=== PATIENT | male | born 1955 | race Caucasian/White ===

== ENCOUNTER 2023-12-14 06:20 | Inpatient (IN) | payer MEDICARE ==
--- NOTE | 2023-12-14 07:00 | ED ---
Abdominal Pain HPI - General Chief Complaint: Abdominal Pain Stated Complaint: vomiting Time Seen by Provider: 12/14/23 06:58 Source: patient, family, RN notes reviewed Mode of arrival: wheelchair Limitations: no limitations - History of Present Illness Initial Comments: 68-year-old male presented to the ER with a chief complaint of epigastric abdominal pain. Patient reports this started after eating dinner last night. He started to experience nausea and frequent episodes of vomiting around 11 PM. He states he has had 5 episodes of vomiting undigested food and no bile she pain started. He describes as sharp in nature. Patient does report a history of colon cancer with colon resection when he was 48 at [facility]. Patient has taken [id number] Pepto-Bismol and Advil without relief. He states he had a normal bowel movement yesterday. Denies any urinary complaints, fevers, chills, chest pain, shortness of breath or peripheral edema. - Related Data Home Medications Medication Instructions Recorded Confirmed No Known Home Medications 12/14/23 12/14/23 Allergies Allergy/AdvReac Type Severity Reaction Status Date / Time No Known Allergies Allergy Verified 12/14/23 09:12 Review of Systems ROS Statement: Those systems with pertinent positive or pertinent negative responses have been documented in the HPI. ROS Other: All systems not noted in ROS Statement are negative. Past Medical History Past Medical History: Cancer Additional Past Medical History / Comment(s): Colon Cancer History of Any Multi-Drug Resistant Organisms: None Reported Past Psychological History: No Psychological Hx Reported Smoking Status: Never smoker Past Alcohol Use History: Occasional Past Drug Use History: None Reported General Exam Limitations: no limitations General appearance: alert, in no apparent distress Respiratory exam: Present: normal lung sounds bilaterally. Absent: respiratory distress, wheezes, rales, rhonchi, stridor Cardiovascular Exam: Present: regular rate, normal rhythm, normal heart sounds. Absent: systolic murmur, diastolic murmur, rubs, gallop, clicks GI/Abdominal exam: Present: soft, tenderness (generalized), normal bowel sounds Extremities exam: Present: normal inspection, full ROM, normal capillary refill. Absent: tenderness, pedal edema, joint swelling, calf tenderness Neurological exam: Present: alert, oriented X3, CN II-XII intact Skin exam: Present: warm, dry, intact, normal color. Absent: rash Course Vital Signs 12/14/23 12/14/23 12/14/23 06:22 06:39 07:37 Temperature 97.9 F 98.1 F Pulse Rate 63 66 67 Respiratory 18 20 17 Rate Blood Pressure 128/83 131/83 134/84 O2 Sat by Pulse 98 98 96 Oximetry 12/14/23 12/14/23 09:00 09:31 Temperature 98.1 F Pulse Rate 70 72 Respiratory 16 16 Rate Blood Pressure 144/91 130/85 O2 Sat by Pulse 94 L 95 Oximetry - Reevaluation(s) Reevaluation #1: 12/14/23 10:59 Discussed with on-call surgery, Dr. Navarrete who advised on admission to medicine and NG tube placement. Reevaluation #2: 12/14/23 11:00 Discussed with [facility], Dr. Gao for admission. Medical Decision Making - Medical Decision Making Was pt. sent in by a medical professional or institution (, PA, [employer] [facility], urgent care, hospital, or [place] health [place] facility...) When possible be specific @ -No Did you speak to anyone other than the patient for history (EMS, parent, family, police, friend...)? What history was obtained from this source @ -No Did you review nursing and triage notes (agree or disagree)? Why? @ -I reviewed and agree with nursing and triage notes Were old charts reviewed (outside hosp., previous admission, EMS record, old EKG, old radiological studies, urgent care reports/EKG's, [place] health care facility records)? Report findings @ -No old charts were reviewed Differential Diagnosis (chest pain, altered mental status, abdominal pain women, abdominal pain men, vaginal bleeding, weakness, fever, dyspnea, syncope, headache, dizziness, GI bleed, back pain, seizure, CVA, palpatations, mental health, musculoskeletal)? @ -Differential Abdominal Pain Women: Appendicitis, Cholecystitis, diverticulosis, ischemic bowel, pancreatitis, hepatitis, UTI, gastroenteritis, AAA, incarcerated hernia, bowel obstruction, constipation, inflammatory bowel, hepatitis, peptic ulcer disease, splenic infarction, perforated viscus, vulvitis, ovarian torsion, PID, kidney stone, placenta abruption, this is not meant to be an all-inclusive list EKG interpreted by me (3pts min.). @ -As above X-rays interpreted by me (1pt min.). @ -None done CT interpreted by me (1pt min.). @ -CT abdomen pelvis showing a partial small bowel obstruction with transition point in the anterior right lower quadrant. Rule out ileus. U/S interpreted by me (1pt. min.). @ -None done What testing was considered but not performed or refused? (CT, X-rays, U/S, labs)? Why? @ -None What meds were considered but not given or refused? Why? @ -None Did you discuss the management of the patient with other professionals (professionals i.e. DrRitika, PA, [employer], lab, RT, psych nurse, oncology social work, bicycle courier, teacher, aerospace engineer officer armament, ed case manager)? Give summary @ -Case discussed with on-call general surgery, Dr. Navarrete, who advised on admission to medicine and NG tube placement. Case also discussed with [facility], Dr. Gao for admission. Was smoking cessation discussed for >3mins.? @ -No Was critical care preformed (if so, how long)? @ -No Were there social determinants of health that impacted care today? How? (Homelessness, low income, unemployed, alcoholism, drug addiction, transportation, low edu. Level, literacy, decrease access to med. care, [facility], rehab)? @ -No Was there de-escalation of care discussed even if they declined (Discuss DNR or withdrawal of care, Hospice)? DNR status @ -No What co-morbidities impacted this encounter? (DM, HTN, Smoking, COPD, CAD, Ca ncer, CVA, ARF, Chemo, Hep., AIDS, mental health diagnosis, sleep apnea, morbid obesity)? @ -Hx colon cancer with resection about 20 years ago Was patient admitted / discharged? Hospital course, mention meds given and route, prescriptions, significant lab abnormalities, going to OR and other pertinent info. @ -Discharge. 68-year-old male presented to the ER with a chief complaint of a bdominal pain. History and physical exam completed. Vitals within normal limits. Patient in no signs of acute distress and nontoxic-appearing. Generalized abdominal pain with normal bowel sounds. No rebound or guarding. Laboratory studies show any leukocytosis 14.5 with a left shift. Lactic a cidosis 3.5. Patient is hyperglycemic at 198. Urinalysis showing mild signs of dehydration with 2+ protein and 2+ ketones. CT abdomen pelvis concerning of a partial small bowel obstruction. Case discussed with on-call general surgery, Dr. Navarrete who advises on admission to medicine with NG tube placement. Admission discussed with Dr. Gao, [facility], for further treatment and evaluation of SBO. Received 1 L IV fluids, Zofran, Toradol and Protonix in the ER. Blood cultures obtained. Patient started on Zosyn. NG-tube placed. Upon reevalutation patient resting in exam room in no signs of acute distress. Results discussed with patient, all questions answered. Patient agreeable for admission. Patient admitted in stable condition for further evaluation and treatment. Case discussed with ED attending, Dr. Jefferson. Undiagnosed new problem with uncertain prognosis? @ -Yes Drug Therapy requiring intensive monitoring for toxicity (Heparin, Nitro, Insulin, Cardizem)? @ -No Were any procedures done? @ -No Diagnosis/symptom? @ -Partial small bowel obstruction/ lactic acidosis/leukocytosis Acute, or Chronic, or Acute on Chronic? @ -Acute Uncomplicated (without systemic symptoms) or Complicated (systemic symptoms)? @ -Complicated Side effects of treatment? @ -No Exacerbation, Progression, or Severe Exacerbation? @ -No Poses a threat to life or bodily function? How? (Chest pain, USA, PA, pneumonia, PE, COPD, DKA, ARF, appy, cholecystitis, CVA, Diverticulitis, Homicidal, Suicidal, threat to staff... and all critical care pts) @ -Yes small bowel obstruction can lead to bowel perforation and/or sepsis - Lab Data Result diagrams: 12/14/23 07:06 12/14/23 07:06 Lab Results 12/14/23 12/14/23 12/14/23 Range/Units 07:06 07:06 07:06 WBC 14.5 H (3.8-10.6) k/uL RBC 5.43 (4.30-5.90) m/uL Hgb 16.8 (13.0-17.5) gm/dL Hct 49.9 (39.0-53.0) % MCV 91.9 (80.0-100.0) fL MCH 30.9 (25.0-35.0) pg MCHC 33.7 (31.0-37.0) g/dL RDW 13.4 (11.5-15.5) % Plt Count 243 (150-450) k/uL MPV 8.6 Neutrophils % 87 % Lymphocytes % 9 % Monocytes % 4 % Eosinophils % 0 % Basophils % 0 % Neutrophils # 12.5 H (1.3-7.7) k/uL Lymphocytes # 1.2 (1.0-4.8) k/uL Monocytes # 0.5 (0-1.0) k/uL Eosinophils # 0.0 (0-0.7) k/uL Basophils # 0.0 (0-0.2) k/uL Sodium 138 (137-145) mmol/L Potassium 4.4 (3.5-5.1) mmol/L Chloride 102 (98-107) mmol/L Carbon Dioxide 23 (22-30) mmol/L Anion Gap 13 mmol/L BUN 20 (9-20) mg/dL Creatinine 1.19 (0.66-1.25) mg/dL Est GFR (CKD-EPI)AfAm 73 (>60 ml/min/1.73 sqM) Est GFR (CKD-EPI)NonAf 63 (>60 ml/min/1.73 sqM) Glucose 198 H (74-99) mg/dL Lactic Ac Sepsis Rflx Plasma Lactic Acid Karri 3.5 H* (0.7-2.0) mmol/L Calcium 10.1 (8.4-10.2) mg/dL Total Bilirubin 1.1 (0.2-1.3) mg/dL AST 32 (17-59) U/L ALT 29 (4-49) U/L Alkaline Phosphatase 88 (38-126) U/L Total Protein 8.3 H (6.3-8.2) g/dL Albumin 5.1 H (3.5-5.0) g/dL Amylase 41 (30-110) U/L Lipase 45 (23-300) U/L Urine Color Urine Appearance (Clear) Urine pH (5.0-8.0) Ur Specific [place] (1.001-1.035) Urine Protein (Negative) Urine Glucose (UA) (Negative) Urine Ketones (Negative) Urine Blood (Negative) Urine Nitrite (Negative) Urine Bilirubin (Negative) Urine Urobilinogen (<2.0) mg/dL Ur Leukocyte Esterase (Negative) Urine RBC (0-5) /hpf Urine WBC (0-5) /hpf Hyaline Casts (0-2) /lpf Urine Mucus (None) /hpf 12/14/23 12/14/23 12/14/23 Range/Units 07:51 08:40 10:51 WBC (3.8-10.6) k/uL RBC (4.30-5.90) m/uL Hgb (13.0-17.5) gm/dL Hct (39.0-53.0) % MCV (80.0-100.0) fL MCH (25.0-35.0) pg MCHC (31.0-37.0) g/dL RDW (11.5-15.5) % Plt Count (150-450) k/uL MPV Neutrophils % % Lymphocytes % % Monocytes % % Eosinophils % % Basophils % % Neutrophils # (1.3-7.7) k/uL Lymphocytes # (1.0-4.8) k/uL Monocytes # (0-1.0) k/uL Eosinophils # (0-0.7) k/uL Basophils # (0-0.2) k/uL Sodium (137-145) mmol/L Potassium (3.5-5.1) mmol/L Chloride (98-107) mmol/L Carbon Dioxide (22-30) mmol/L Anion Gap mmol/L BUN (9-20) mg/dL Creatinine (0.66-1.25) mg/dL Est GFR (CKD-EPI)AfAm (>60 ml/min/1.73 sqM) Est GFR (CKD-EPI)NonAf (>60 ml/min/1.73 sqM) Glucose (74-99) mg/dL Lactic Ac Sepsis Rflx Y Plasma Lactic Acid Karri 1.8 (0.7-2.0) mmol/L Calcium (8.4-10.2) mg/dL Total Bilirubin (0.2-1.3) mg/dL AST (17-59) U/L ALT (4-49) U/L Alkaline Phosphatase (38-126) U/L Total Protein (6.3-8.2) g/dL Albumin (3.5-5.0) g/dL Amylase (30-110) U/L Lipase (23-300) U/L Urine Color Yellow Urine Appearance Cloudy (Clear) Urine pH 7.0 (5.0-8.0) Ur Specific [place] 1.041 H (1.001-1.035) Urine Protein 2+ H (Negative) Urine Glucose (UA) Negative (Negative) Urine Ketones 2+ H (Negative) Urine Blood Negative (Negative) Urine Nitrite Negative (Negative) Urine Bilirubin Negative (Negative) Urine Urobilinogen 6.0 (<2.0) mg/dL Ur Leukocyte Esterase Negative (Negative) Urine RBC 3 (0-5) /hpf Urine WBC 2 (0-5) /hpf Hyaline Casts 2 (0-2) /lpf Urine Mucus Many H (None) /hpf - EKG Data -: EKG Interpreted by Me EKG Comments: EKG taken at 6: 49 showing a sinus rhythm T waves in lead III and aVF. No acute ST segment changes. Normal axis. Ventricular rate 72, ID interval 196, QRS duration 97, QT/QTc 392/416. - Radiology Data Radiology results: report reviewed, image reviewed Disposition Clinical Impression: Partial small bowel obstruction, Lactic acidosis, Neutrophilic leukocytosis Disposition: ADMITTED IP TO THIS [facility] Condition: Stable Time of Disposition: 11:00
[2023-12-14 07:25] LABS: Basophils % (A) 0 %; Eosinophils % (A) 0 %; HCT 49.9 % (39.0-53.0); HGB 16.8 gm/dL (13.0-17.5); Lymphocytes # (A) 1.2 k/uL (1.0-4.8); Lymphocytes % (A) 9 %; MCH 30.9 pg (25.0-35.0); MCHC 33.7 g/dL (31.0-37.0); MCV 91.9 fL (80.0-100.0); Mean Platelet Volume 8.6; Monocytes # (A) 0.5 k/uL (0-1.0); Monocytes % (A) 4 %; Neutrophils # (A) 12.5 k/uL (1.3-7.7); Neutrophils % (A) 87 %; Platelet Count 243 k/uL (150-450); RBC 5.43 m/uL (4.30-5.90); RDW 13.4 % (11.5-15.5); WBC 14.5 k/uL (3.8-10.6)
[2023-12-14 07:37] LABS: ALT 29 U/L (4-49); AST 32 U/L (17-59); African American GFR (CKD) 73 (>60 ml/min/1.73 sqM); Albumin 5.1 g/dL (3.5-5.0); Alkaline Phosphatase 88 U/L (38-126); Amylase 41 U/L (30-110); Anion Gap 13 mmol/L; Blood Urea Nitrogen 20 mg/dL (9-20); Calcium 10.1 mg/dL (8.4-10.2); Carbon Dioxide 23 mmol/L (22-30); Chloride 102 mmol/L (98-107); Glucose 198 mg/dL (74-99); Lipase 45 U/L (23-300); Non-African American GFR(CKD) 63 (>60 ml/min/1.73 sqM); Potassium 4.4 mmol/L (3.5-5.1); Sodium 138 mmol/L (137-145); Total Bilirubin 1.1 mg/dL (0.2-1.3); Total Protein 8.3 g/dL (6.3-8.2)
[2023-12-14] MEDS: KETOROLAC 15 MG/ML 1 ML VIAL IVP STA (07:39)
[2023-12-14] MEDS: SODIUM CHLORIDE 0.9% 1,000 ML IV STA (07:39)
[2023-12-14] MEDS: ONDANSETRON 4 MG/2 ML VIAL IVP STA (07:40)
[2023-12-14 08:47] LABS: Appearance,Urine Cloudy (Clear); Bilirubin,Urine Negative (Negative); Blood,Urine Negative (Negative); Color,Urine Yellow; Glucose,Urine (UA) Negative (Negative); Hyaline Casts,Urine 2 /lpf (0-2); Ketones,Urine 2+ (Negative); Leukocyte Esterase,Urine Negative (Negative); Mucus,Urine Many /hpf; Nitrite,Urine Negative (Negative); Protein,Urine 2+ (Negative); RBC,Urine 3 /hpf (0-5); Specific Gravity,Urine 1.041 (1.001-1.035); WBC,Urine 2 /hpf (0-5)
[2023-12-14] MEDS: PANTOPRAZOLE 40 MG/10 ML VIAL IVP STA (09:33)
--- NOTE | 2023-12-14 10:21 | CT ---
EXAMINATION TYPE: CT abdomen pelvis w con DATE OF EXAM: 12/14/2023 COMPARISON: None INDICATION: Abdominal pain with hx of bowel resection DLP: 1299.5 mGycm, Automated exposure control for dose reduction was used. CONTRAST: 100 ml mL of Isovue 300. Study performed without Oral Contrast TECHNIQUE: Axial images were obtained from above the diaphragm to the pubic rami in the axial plane a t 5 mm thick sections. Reconstructed images are reviewed on the computer in the coronal plane. FINDINGS: Limited CT sections are obtained the lung bases. The lung bases are clear. Small hiatal hernia may be present CT ABDOMEN: Liver: There is moderate fatty infiltration of liver. No discrete masses are seen Spleen: Normal Pancreas: Normal Adrenal glands: The adrenal glands are normal. Gallbladder: Normal Kidneys: No masses are evident. No hydronephrosis is present. No cysts are present. Delayed images were obtained through the kidneys, which remain unremarkable. Aorta: Vascular calcification is within the aorta. Inferior vena cava: Normal. CT PELVIS: There are dilated fluid-filled small bowel loops within the midabdomen. An anastomosis is in the righ t lower quadrant. No stenosis is evident at the anastomosis. This study is without oral contrast limi t evaluation. There may be a zone of transition within the anterior right lower quadrant example imag e 201 image 66. No discrete abnormality to account for the narrowing. The distal esophagus appears no rmal caliber small bowel Appendix: Prior appendectomy evident Urinary bladder: Normal. Genitourinary structures: Prostate appears normal Osseous structures: No suspicious lytic or sclerotic lesions. IMPRESSION: 1. There may be a partial small bowel obstruction with a transition in the anterior right lower quad rant. Etiology is not identified. Consider ileus within the differential. This area is a distance fro m the anastomosis which appears normal. 2. Moderate fatty infiltration the liver
[2023-12-14] MEDS ORDERED: ONDANSETRON 4 MG/2 ML VIAL IVP PRN (10:52)
[2023-12-14] MEDS ORDERED: KETOROLAC 15 MG/ML 1 ML VIAL IVP PRN (10:52)
[2023-12-14] MEDS ORDERED: NALOXONE 0.4 MG/ML 1 ML VIAL IV PRN (10:52)
[2023-12-14] MEDS: LIDOCAINE 2% GLYDO JELLY 6 ML APPL MUCOUS MEM STA (11:09)
[2023-12-14] MEDS: HYDROmorphone 1 MG/ML 1 ML SYRINGE IVP PRN (11:28)
[2023-12-14] MEDS: PIPERACILLIN-TAZOBACTAM 3.375 GM in SODIUM CHLORIDE 0.9% 100 ML IVPB STA (11:29)
[2023-12-14] MEDS: SODIUM CHLORIDE 0.9% 1,000 ML IV SCH (11:30)
--- NOTE | 2023-12-14 11:46 | XR ---
EXAMINATION TYPE: XR chest 1V portable DATE OF EXAM: 12/14/2023 COMPARISON: None INDICATION: NG tube placement TECHNIQUE: Single frontal view of the chest is obtained. FINDINGS: The heart size is normal. The pulmonary vasculature is normal. The lungs are clear. NG tube is in place, tip is in the left upper quadrant of the abdomen. IMPRESSION: 1. No acute pulmonary process. 2. NG tube with tip in the left upper quadrant of the abdomen.
[2023-12-14] MEDS ORDERED: PIPERACILLIN-TAZOBACTAM 3.375 GM in SODIUM CHLORIDE 0.9% 100 ML IVPB SCH (16:00)
--- NOTE | 2023-12-14 18:25 | P.GSCN ---
History of Present Illness Consult date: 12/14/23 History of present illness: 68-year-old male presents to the emergency department with complaint of abdominal pain. He states that the pain started approximately 1 day ago and worsened throughout the day. He also complained of multiple episodes of emesis. He does state that he has a history of colon cancer with resection about 20 years ago. On workup, CT of the abdomen and pelvis was completed with multiple dilated loops of small bowel and concern of partial small bowel obstruction versus ileus. Patient did have nasogastric tube placed in the emergency depart ment with slightly over 500 cc of bilious output. Patient states last bowel movement was approximately 2 days ago. He denies having previous bowel obstruction. Review of Systems All systems: negative Past Medical History Past Medical History: Cancer Additional Past Medical History / Comment(s): Colon Cancer History of Any Multi-Drug Resistant Organisms: None Reported Past Psychological History: No Psychological Hx Reported Smoking Status: Never smoker Past Alcohol Use History: Occasional Past Drug Use History: None Reported Medications and Allergies Home Medications Medication Instructions Recorded Confirmed Type No Known Home Medications 12/14/23 12/14/23 History Allergies Allergy/AdvReac Type Severity Reaction Status Date / Time No Known Allergies Allergy Verified 12/14/23 09:12 Surgical - Exam Osteopathic Statement: *. No significant issues noted on an osteopathic structural exam other than those noted in the History and Physical/Consult. Vital Signs Temp Pulse Resp BP Pulse Ox 97.9 F 63 18 128/83 98 12/14/23 06:22 12/14/23 06:22 12/14/23 06:22 12/14/23 06:22 12/14/23 06:22 - General well developed, well nourished, no distress - ENT no hearing loss - Neck trachea midline - Respiratory normal respiratory effort - Abdomen Soft, mildly distended, nontender, no rebound or guarding - Psychiatric oriented to time, oriented to person, oriented to place Results - Labs 12/14/23 07:06 12/14/23 07:06 Abnormal Lab Results - Last 24 Hours (Table) 12/14/23 12/14/23 12/14/23 Range/Units 07:06 07:06 07:06 WBC 14.5 H (3.8-10.6) k/uL Neutrophils # 12.5 H (1.3-7.7) k/uL Glucose 198 H (74-99) mg/dL Plasma Lactic Acid Karri 3.5 H* (0.7-2.0) mmol/L Total Protein 8.3 H (6.3-8.2) g/dL Albumin 5.1 H (3.5-5.0) g/dL Ur Specific [place] (1.001-1.035) Urine Protein (Negative) Urine Ketones (Negative) Urine Mucus (None) /hpf 12/14/23 Range/Units 07:51 WBC (3.8-10.6) k/uL Neutrophils # (1.3-7.7) k/uL Glucose (74-99) mg/dL Plasma Lactic Acid Karri (0.7-2.0) mmol/L Total Protein (6.3-8.2) g/dL Albumin (3.5-5.0) g/dL Ur Specific [place] 1.041 H (1.001-1.035) Urine Protein 2+ H (Negative) Urine Ketones 2+ H (Negative) Urine Mucus Many H (None) /hpf Diabetes panel 12/14/23 Range/Units 07:06 Sodium 138 (137-145) mmol/L Potassium 4.4 (3.5-5.1) mmol/L Chloride 102 (98-107) mmol/L Carbon Dioxide 23 (22-30) mmol/L BUN 20 (9-20) mg/dL Creatinine 1.19 (0.66-1.25) mg/dL Glucose 198 H (74-99) mg/dL Calcium 10.1 (8.4-10.2) mg/dL AST 32 (17-59) U/L ALT 29 (4-49) U/L Alkaline Phosphatase 88 (38-126) U/L Total Protein 8.3 H (6.3-8.2) g/dL Albumin 5.1 H (3.5-5.0) g/dL Calcium panel 12/14/23 Range/Units 07:06 Calcium 10.1 (8.4-10.2) mg/dL Albumin 5.1 H (3.5-5.0) g/dL Pituitary panel 12/14/23 Range/Units 07:06 Sodium 138 (137-145) mmol/L Potassium 4.4 (3.5-5.1) mmol/L Chloride 102 (98-107) mmol/L Carbon Dioxide 23 (22-30) mmol/L BUN 20 (9-20) mg/dL Creatinine 1.19 (0.66-1.25) mg/dL Glucose 198 H (74-99) mg/dL Calcium 10.1 (8.4-10.2) mg/dL Adrenal panel 12/14/23 Range/Units 07:06 Sodium 138 (137-145) mmol/L Potassium 4.4 (3.5-5.1) mmol/L Chloride 102 (98-107) mmol/L Carbon Dioxide 23 (22-30) mmol/L BUN 20 (9-20) mg/dL Creatinine 1.19 (0.66-1.25) mg/dL Glucose 198 H (74-99) mg/dL Calcium 10.1 (8.4-10.2) mg/dL Total Bilirubin 1.1 (0.2-1.3) mg/dL AST 32 (17-59) U/L ALT 29 (4-49) U/L Alkaline Phosphatase 88 (38-126) U/L Total Protein 8.3 H (6.3-8.2) g/dL Albumin 5.1 H (3.5-5.0) g/dL Assessment and Plan Plan: 68-year-old male with partial small bowel obstruction. Nasogastric tube in place for decompression. Patient states that he has had significant improvement since placement. Keep NPO. Will continue to monitor progress for return of bowel function. Consider abdominal x-ray versus small bowel series depending on clinical progress.
[2023-12-14] MEDS: PIPERACILLIN-TAZOBACTAM 3.375 GM in SODIUM CHLORIDE 0.9% 100 ML IVPB SCH (19:11)
--- NOTE | 2023-12-14 22:28 | P.HPIM ---
History of Present Illness H&P Date: 12/14/23 Chief Complaint: Abdominal pain Patient is a 68-year-old male with a past medical history of colon cancer 20 years ago status post chemoradiation and surgery presents to ER with complaints of abdominal pain. Patient states that since last night has been having intractable abdominal pain associate with nausea and multiple episodes of vomiting since last night. Mildly undigested food and no bile. Pain is sharp and allover abdominal. Patient did take [id number] Pepto-Bismol and Advil without much relief. Patient states that he did have episodes of diarrhea yesterday. Denies any fever or chills. No chest pain or shortness of breath. No cough or sputum production. CT of the abdomen pelvis showed there may be a partial small bowel obstruction with transition in the anterior right lower quadrant. Consider EUS within the differential. Moderate fatty infiltration in the liver. Chest x-ray showed no acute pulmonary process. NG tube tip in the left upper q uadrant of the abdomen. EKG showed sinus rhythm. Laboratory data showed WBC 14.5 hemoglobin 16.8 and platelets 243 blood sugar 198 lactic acid 3.5 liver exams are not elevated. Urinalysis showed increased blood sugar every 2+ protein and 2+ glucose Review of Systems Constitutional: Patient denies any fever or chills . No generalized weakness or weight loss. Abdomen: Patient does complain of nausea vomiting and abdominal pain. No diarrhea. n. Cardiovascular: Patient denies any chest pain or short of breath no palpitations. Respiratory: patient denied any cough or sputum production. No shortness of breath Neurologic: Patient denied any numbness or tingling. no headache. Musculoskeletal: Patient denies any complaints of joint swelling or deformity. Skin: Negative Psychiatric: Negative Endocrine: No heat or cold intolerance. No recent weight gain. Genitourinary: No dysuria or hematuria. All other 14 point ROS negative except the above Past Medical History Past Medical History: Cancer Additional Past Medical History / Comment(s): Colon Cancer History of Any Multi-Drug Resistant Organisms: None Reported Past Psychological History: No Psychological Hx Reported Smoking Status: Never smoker Past Alcohol Use History: Occasional Past Drug Use History: None Reported Medications and Allergies Home Medications Medication Instructions Recorded Confirmed Type No Known Home Medications 12/14/23 12/14/23 History Allergies Allergy/AdvReac Type Severity Reaction Status Date / Time No Known Allergies Allergy Verified 12/14/23 09:12 Physical Exam Vitals: Vital Signs Temp Pulse Resp BP Pulse Ox 12/14/23 12:58 74 16 123/80 96 12/14/23 09:31 72 16 130/85 95 12/14/23 09:00 98.1 F 70 16 144/91 94 L 12/14/23 07:37 98.1 F 67 17 134/84 96 12/14/23 06:39 66 20 131/83 98 12/14/23 06:22 97.9 F 63 18 128/83 98 Intake and Output 12/13/23 12/14/23 12/14/23 22:59 06:59 14:59 Other: Weight 108.409 kg PHYSICAL EXAMINATION: Patient is lying in the bed comfortably, no acute distress, awake alert and oriented.. HEENT: Normocephalic. Neck is supple. Pupils reactive. Nostrils clear. Oral cavity is moist. Neck reveals no JVD, carotid bruits, or thyromegaly. CHEST EXAMINATION: Trachea is central. Symmetrical expansion. Lung alvarez clear to auscultation and percussion. CARDIAC: Normal S1, S2 with no gallops. No murmurs ABDOMEN: Soft. Bowel sounds sluggish. Mild tenderness. No guarding or rigidity.. No organomegaly. No abdominal bruits. Extremities: reveal no edema. No clubbing or cyanosis Neurologically awake, alert, oriented x3 with well-coordinated movements. No focal deficits noted Skin: No rash or skin lesions. Psychiatric: Coperative. Nonsuicidal Musculoskeletal: No joint swelling or deformity. Normal range of motion. Results CBC & Chem 7: 12/14/23 07:06 12/14/23 07:06 Labs: Abnormal Lab Results - Last 24 Hours (Table) 12/14/23 12/14/23 12/14/23 Range/Units 07:06 07:06 07:06 WBC 14.5 H (3.8-10.6) k/uL Neutrophils # 12.5 H (1.3-7.7) k/uL Glucose 198 H (74-99) mg/dL Plasma Lactic Acid Karri 3.5 H* (0.7-2.0) mmol/L Total Protein 8.3 H (6.3-8.2) g/dL Albumin 5.1 H (3.5-5.0) g/dL Ur Specific [place] (1.001-1.035) Urine Protein (Negative) Urine Ketones (Negative) Urine Mucus (None) /hpf 12/14/23 Range/Units 07:51 WBC (3.8-10.6) k/uL Neutrophils # (1.3-7.7) k/uL Glucose (74-99) mg/dL Plasma Lactic Acid Karri (0.7-2.0) mmol/L Total Protein (6.3-8.2) g/dL Albumin (3.5-5.0) g/dL Ur Specific [place] 1.041 H (1.001-1.035) Urine Protein 2+ H (Negative) Urine Ketones 2+ H (Negative) Urine Mucus Many H (None) /hpf Thrombosis Risk Factor Assmnt - DVT/VTE Prophylaxis DVT/VTE Prophylaxis: Pharmacologic Prophylaxis ordered Assessment and Plan Assessment: Abdominal pain secondary to acute partial small bowel obstruction Intractable nausea and vomiting Prior history of colon cancer several years ago status post chemoradiation and surgery Lactic acidosis 3.5 on admission Hyperglycemia with no prior history of diabetes Leukocytosis likely reactive neck DVT prophylaxis with heparin subcu Plan: Patient will be continued on IV hydration with normal saline. Nothing by mouth. Continue with IV pain medications and NGT was placed. Symptomatic management for nausea. Empiric antibiotics and follow-up Zosyn. General surgery was consulted. Follow-up A1c level due to hyperglycemia. Continue to follow closely. Time with Patient: Greater than 30
[2023-12-14] MEDS: FAMOTIDINE 20 MG/2 ML VIAL IV SCH (23:13)
[2023-12-15] MEDS ORDERED: ASCORBIC ACID 500 MG TAB PO SCH (09:00)
[2023-12-15 11:43] LABS: Basophils # (A) 0.04 X 10*3/uL (0.00-0.10); Basophils % (A) 0.6 %; Eosinophils # (A) 0.13 X 10*3/uL (0.04-0.35); Eosinophils % (A) 1.8 %; HCT 44.1 % (39.6-50.0); HGB 14.2 g/dL (13.0-17.0); Lymphocytes # (A) 1.16 X 10*3/uL (0.90-5.00); Lymphocytes % (A) 16.3 %; MCH 30.3 pg (27.0-32.0); MCHC 32.2 g/dL (32.0-37.0); MCV 94.2 FL (80.0-97.0); Mean Platelet Volume 11.9 FL (9.5-12.2); Monocytes # (A) 1.11 X 10*3/uL (0.20-1.00); Monocytes % (A) 15.6 %; NRBC Per 100 WBC 0 X 10*3/uL (0.00-0.01); Neutrophils # (A) 4.67 X 10*3/uL (1.80-7.70); Neutrophils % (A) 65.4 %; Platelet Count 174 X 10*3/uL (140-440); RBC 4.68 X 10*6/uL (4.40-5.60); RDW 13.8 % (11.5-14.5); WBC 7.13 X 10*3/uL (4.50-10.00)
[2023-12-15 12:09] LABS: Blood Urea Nitrogen 20.8 mg/dL (9.0-27.0); Calcium 8.4 mg/dL (8.7-10.3); Chloride 108 mmol/L (96-109); Glucose 133 mg/dL (70-110); Potassium 4.1 mmol/L (3.5-5.5); Sodium 145 mmol/L (135-145)
--- NOTE | 2023-12-15 12:36 | P.PN ---
Subjective Patient seen and evaluated at beside. Doing well, passing flatus. Martín nausea or vomiting. Minmal out ngt. Objective - Vital Signs Vital signs: Vital Signs Temp 98.2 F 12/15/23 07:13 Pulse 75 12/15/23 08:16 Resp 15 12/15/23 08:16 BP 125/74 12/15/23 07:13 Pulse Ox 96 12/15/23 07:13 FiO2 Intake & Output 12/14/23 12/15/23 12/15/23 18:59 06:59 18:59 Weight 108.409 kg Other: # Voids 1 - Exam gen nad cv rrr pul non labored breathing abd soft, non tender to palpation, some distention, no guarding no rebound tenderness - Labs CBC & Chem 7: 12/15/23 05:51 12/15/23 05:51 Labs: Abnormal Lab Results - Last 24 Hours (Table) 12/15/23 12/15/23 Range/Units 05:51 05:51 Monocytes # 1.11 H (0.20-1.00) X 10*3/uL Glucose 133 H (70-110) mg/dL Calcium 8.4 L (8.7-10.3) mg/dL Assessment and Plan Assessment: 68-year-old male with partial small bowel obstruction. Nasogastric tube in place for decompression -ngt minimal outpatient -clamp ngt, start on clear liquids -await 4 hrs and hook back up to wall suction, if minimal output remove ngt -start regular diet in am if still progressing Time with Patient: Greater than 30
--- NOTE | 2023-12-15 23:40 | P.PN ---
Subjective Progress Note Date: 12/15/23 Patient is a 68-year-old male with a past medical history of colon cancer 20 years ago status post chemoradiation and surgery presents to ER with complaints of abdominal pain. Patient states that since last night has been having intractable abdominal pain associate with nausea and multiple episodes of vo miting since last night. Mildly undigested food and no bile. Pain is sharp and allover abdominal. Patient did take [id number] Pepto-Bismol and Advil without much relief. Patient states that he did have episodes of diarrhea yesterday. Denies any fever or chills. No chest pain or shortness of breath. No cough or sputum production. CT of the abdomen pelvis showed there may be a partial small bowel obstruction with transition in the anterior right lower quadrant. Consider EUS within the differential. Moderate fatty infiltration in the liver. Chest x-ray showed no acute pulmonary process. NG tube tip in the left upper quadrant of the abdomen. EKG showed sinus rhythm. Laboratory data showed WBC 14.5 hemoglobin 16.8 and platelets 243 blood sugar 198 lactic acid 3.5 liver exams are not elevated. Urinalysis showed increased blood sugar every 2+ protein and 2+ glucose 12/15/2023 Patient is lying in the bed. Awake alert and oriented x 3. Patient is able to pass flatus and did have a bowel movement today. Was able to tolerate liquids. NG tube has been discontinued. Patient is improving symptomatically.Laboratory data showed WBC 7.1 hemoglobin 14.2 and platelets 174 sodium 145 potassium 4.1 chloride 108 bicarb is 26 BUN 20.8 and creatinine 1.3 and blood sugar 133 A1c 5.7 and calcium 8.4. General surgery is on board. Advance diet as tolerated. Remains on empiric antibiotics. Current medications reviewed. Objective - Vital Signs Vital signs: Vital Signs Temp 97.8 F 12/15/23 13:37 Pulse 76 12/15/23 13:37 Resp 16 12/15/23 13:37 BP 124/78 12/15/23 13:37 Pulse Ox 96 12/15/23 13:37 FiO2 Intake & Output 12/14/23 12/15/23 12/15/23 18:59 06:59 18:59 Weight 108.409 kg Other: # Voids 1 - Exam PHYSICAL EXAMINATION: Patient is lying in the bed comfortably, no acute distress, awake alert and o riented.. HEENT: Normocephalic. Neck is supple. Pupils reactive. Nostrils clear. Oral cavity is moist. Neck reveals no JVD, carotid bruits, or thyromegaly. CHEST EXAMINATION: Trachea is central. Symmetrical expansion. Lung alvarez clear to auscultation and percussion. CARDIAC: Normal S1, S2 with no gallops. No murmurs ABDOMEN: Soft. Bowel sounds normal. No organomegaly. No abdominal bruits. Extremities: reveal no edema. No clubbing or cyanosis Neurologically awake, alert, oriented x3 with well-coordinated movements. No focal deficits noted Skin: No rash or skin lesions. Psychiatric: Coperative. Nonsuicidal Musculoskeletal: No joint swelling or deformity. Normal range of motion. - Labs CBC & Chem 7: 12/15/23 05:51 12/15/23 05:51 Labs: Abnormal Lab Results - Last 24 Hours (Table) 12/15/23 12/15/23 Range/Units 05:51 05:51 Monocytes # 1.11 H (0.20-1.00) X 10*3/uL Glucose 133 H (70-110) mg/dL Calcium 8.4 L (8.7-10.3) mg/dL Assessment and Plan Assessment: Abdominal pain secondary to acute partial small bowel obstruction. Improved now. Intractable nausea and vomiting Prior history of colon cancer several years ago status post chemoradiation and surgery Lactic acidosis 3.5 on admission Hyperglycemia with no prior history of diabetes Leukocytosis likely reactive neck DVT prophylaxis with heparin subcu Plan: Patient will be continued on IV hydration with normal saline. NG tube has been discontinued. Patient was started on clear liquid diet. Symptomatic management for nausea. Empiric antibiotics and follow-up Socorrosyn. General surgery is on board. Continue to follow closely. Time with Patient: Greater than 30
[2023-12-16 07:14] VITALS: BP 126/76; PULSE 57; RESP 16; TEMP 97.5
[2023-12-16 10:24] LABS: BUN/Creat Ratio 11.25 Ratio (12.00-20.00); Blood Urea Nitrogen 13.5 mg/dL (9.0-27.0); Calcium 7.9 mg/dL (8.7-10.3); Carbon Dioxide 24.2 mmol/L (21.6-31.8); Chloride 106 mmol/L (96-109); Glucose 96 mg/dL (70-110); Potassium 3.7 mmol/L (3.5-5.5); Sodium 139 mmol/L (135-145)
--- NOTE | 2023-12-16 12:58 | P.PN ---
Progress Note - Text Progress Note Date: 12/16/23 FREDI. Advanced to Regular Diet this morning and tolerated lunch. Denies N/V. Passing gas VSS General-NAD Abdomen-soft, NTND 68-year-old male with partial small bowel obstruction. -Regular Diet -Ok for d/c from surgery standpoint Jagdeep Uribe DO [facility] [phone]
== END 2023-12-16 13:59 | disposition left against medical advice (07) | DRG 389 ==
LOC: EC 06:20 → 5NMEDONC 11:08 → 4SSUR 18:05
PROVIDERS: ADMIT Internal Medicine; ATTEND Internal Medicine
PROC: 0D9670Z Drainage of Stomach with Drainage Device, Via Natural or Artificial Opening (ICD-10-PCS; principal; 2023-12-14)
DX: K56.600 Partial intestinal obstruction, unspecified as to cause (principal); E87.20 Acidosis, unspecified; D72.828 Other elevated white blood cell count; R11.2 Nausea with vomiting, unspecified; K76.0 Fatty (change of) liver, not elsewhere classified; Z85.038 Personal history of other malignant neoplasm of large intestine; Z92.21 Personal history of antineoplastic chemotherapy; Z92.3 Personal history of irradiation; Z53.29 Procedure and treatment not carried out because of patient's decision for other reasons
CPT/HCPCS: 36415; 71045; 74177; 80048; 80053; 81001; 82150; 83036; 83605; 83690; 85025; 87040; 93005; 96361; 96365; 96366; 96368; 96375; 96376; 99285